=== PATIENT | male | born 1980 | race Caucasian/White ===

== ENCOUNTER 2016-07-02 09:49 | Emergency (ER) | payer OTHER ==
[~2016-07-02] VITALS: Ht 177.8 cm; Wt 94.3 kg
[~2016-07-02 09:49] MED LIST: DIAZ5TAB4 PO; DISU250T15 PO; DISU250T2 PO; DULO30CA2 PO; HCG250DI IM; HYDR2TAB13 PO; HYDR8TAB27 PO; INSU100I11; INSU100I29 SQ-INSULIN; LIPA1TAB3 PO; LORA-446 PO; ONDA4TAB10 PO; OXYC-229 PO; OXYC-302 PO; OXYC5TAB3 PO; PROM25TA10 PO; TAMS-11 PO; TEST200V3 IM
[2016-07-02] MEDS ORDERED: SODIUM CHLORIDE 0.9% 1,000 ML IV ONE (10:21)
[2016-07-02] MEDS ORDERED: SODIUM CHLORIDE FLUSH 10ML SYR IVF ONE (10:30)
[2016-07-02] MEDS ORDERED: KETOROLAC 30 MG/1 ML IVPush ONE (10:30)
[2016-07-02] MEDS ORDERED: SODIUM CHLORIDE 0.9% 1,000ML IVBOLUS ONE (10:30)
[2016-07-02] MEDS ORDERED: ALBUTEROL SULFATE 2.5 MG/3 ML ONE (10:49)
[2016-07-02] MEDS ORDERED: KETOROLAC 30 MG/1 ML ONE (10:54)
[2016-07-02] MEDS ORDERED: ALBUTEROL SULFATE 2.5 MG/3 ML NPPB ONE (11:00)
[2016-07-02 11:02] LABS: BLOOD UREA NITROGEN 21 mg/dL (7-18)
[2016-07-02] MEDS ORDERED: ACETAMINOPHEN 500 MG TABLET ONE (12:08)
[2016-07-02] MEDS ORDERED: ACETAMINOPHEN 500 MG TABLET PO ONE (12:30)
[2016-07-02 13:01] VITALS: BP 128/80
== END 2016-07-02 13:36 | disposition home or self-care (01) ==
LOC: ED 11:14
DX: J20.8 Acute bronchitis due to other specified organisms (principal); Z88.5 Allergy status to narcotic agent; Z88.1 Allergy status to other antibiotic agents; Z88.8 Allergy status to other drugs, medicaments and biological substances
CPT/HCPCS: 36415; 71010; 80048; 82040; 83605; 85025; 87040; 94640; 96361; 96374; 99285; J1885; J7030; J7613

== ENCOUNTER 2016-07-09 16:02 | Inpatient (IN) | payer OTHER, MEDICARE ==
[~2016-07-09] VITALS: Ht 177.8 cm; Wt 96.8 kg
[2016-07-09] MEDS ORDERED: INSU300I SC (16:52)
[2016-07-09] MEDS ORDERED: INSU100I15 SC (16:53)
[2016-07-09] MEDS ORDERED: ANAS1TAB3 PO (16:54)
[2016-07-09] MEDS ORDERED: MAALOX/HYOSCYAMINE/LIDOCAINE 45 ML BOTTLE ONE (17:26)
[2016-07-09] MEDS ORDERED: HYDROmorphone 1 MG/ML, 1ML ONE ×3 (17:26→19:37)
[2016-07-09] MEDS ORDERED: ONDANSETRON 2MG/ML, 2ML ONE (17:27)
[2016-07-09] MEDS ORDERED: FAMOTIDINE 20 MG/2 ML ONE (17:27)
[2016-07-09] MEDS ORDERED: MAALOX/HYOSCYAMINE/LIDOCAINE 45 ML BOTTLE PO ONE (17:30)
[2016-07-09] MEDS ORDERED: ONDANSETRON 2MG/ML, 2ML IVPush ONE (17:30)
[2016-07-09] MEDS ORDERED: FAMOTIDINE 20 MG/2 ML IVP ONE (17:30)
[2016-07-09] MEDS ORDERED: SODIUM CHLORIDE 0.9% 1,000ML IVBOLUS ONE (17:30)
[2016-07-09] MEDS: HYDROmorphone 1 MG/ML, 1ML IVPush PRN ×2 (17:34→18:07)
[2016-07-09 17:47] LABS: BLOOD UREA NITROGEN 20 mg/dL (7-18)
[2016-07-09 17:50] LABS: ASPARTATE AMINO TRANSFERASE 31 U/L (15-37)
[2016-07-09] MEDS ORDERED: HYDROmorphone 1 MG/ML, 1ML IV ONE (19:30)
[2016-07-09 21:34] VITALS: BP 156/94
[2016-07-09] MEDS ORDERED: DEXTROSE 50%, 50ML SYRINGE IVPush PRN (23:30)
[2016-07-09] MEDS ORDERED: GLUCAGON 1 MG IM PRN (23:30)
[2016-07-09] MEDS ORDERED: PROMETHAZINE 25 MG/ML, 1ML IM PRN (23:30)
[2016-07-09] MEDS ORDERED: DEXTROSE 4 GM TAB.CHEW PO PRN (23:30)
[2016-07-09] MEDS ORDERED: ONDANSETRON 2MG/ML, 2ML IVP PRN (23:30)
[2016-07-10] MEDS: SODIUM CHLORIDE 0.9% 1,000 ML IV SCH ×3 (00:38→18:26)
[2016-07-10] MEDS: HYDROmorphone 2 MG/ML, 1ML IV PRN ×8 (00:46→21:32)
[2016-07-10] MEDS: FAMOTIDINE 20 MG/2 ML IVPush SCH ×3 (00:46→20:45)
[2016-07-10 01:08] VITALS: BP 149/86
[2016-07-10] MEDS: ENOXAPARIN 40 MG/0.4 ML SQ SCH (05:19)
[2016-07-10 07:54] VITALS: BP 147/91
[2016-07-10] MEDS: INSULIN DETEMIR 100 UNITS/ML, PEN SQ-INSULIN SCH ×2 (07:55→21:32)
[2016-07-10 08:59] LABS: BLOOD UREA NITROGEN 24 mg/dL (7-18)
[2016-07-10] MEDS: SODIUM CHLORIDE FLUSH 10ML SYR IVF SCH ×2 (09:00→20:45)
[2016-07-10 09:04] LABS: ASPARTATE AMINO TRANSFERASE 25 U/L (15-37)
[2016-07-10] MEDS: INSULIN ASPART 100 UNITS/ML, PEN SQ-INSULIN SCH ×4 (09:25→20:45)
[2016-07-10 12:30] VITALS: BP 138/83
[2016-07-10] MEDS: LIPASE/PROTEASE/AMYLASE TAB PO SCH (17:04)
[2016-07-10 20:06] VITALS: BP 154/81
[2016-07-11] MEDS: HYDROmorphone 2 MG/ML, 1ML IV PRN ×4 (00:36→09:31)
[2016-07-11 01:04] VITALS: BP 139/84
[2016-07-11] MEDS: SODIUM CHLORIDE 0.9% 1,000 ML IV SCH (03:31)
[2016-07-11] MEDS: ENOXAPARIN 40 MG/0.4 ML SQ SCH (04:12)
[2016-07-11 05:39] LABS: BLOOD UREA NITROGEN 14 mg/dL (7-18)
[2016-07-11] MEDS: INSULIN ASPART 100 UNITS/ML, PEN SQ-INSULIN SCH ×4 (07:00→21:47)
[2016-07-11] MEDS: LIPASE/PROTEASE/AMYLASE TAB PO SCH ×3 (08:03→16:41)
[2016-07-11 08:33] VITALS: BP 121/82
[2016-07-11] MEDS: FAMOTIDINE 20 MG/2 ML IVPush SCH ×2 (08:39→21:46)
[2016-07-11] MEDS: INSULIN DETEMIR 100 UNITS/ML, PEN SQ-INSULIN SCH ×2 (09:24→21:48)
[2016-07-11] MEDS ORDERED: OXYcodone IR 5MG TABLET PO PRN ×2 (11:00→16:30)
[2016-07-11] MEDS: SODIUM CHLORIDE FLUSH 10ML SYR IVF SCH ×2 (11:55→21:48)
[2016-07-11] MEDS ORDERED: HYDROmorphone 2 MG/ML, 1ML IVPush PRN ×2 (12:30→15:00)
[2016-07-11 13:58] VITALS: BP 153/83
[2016-07-11] MEDS ORDERED: HYDROmorphone 2MG TABLET PO PRN ×2 (17:00→23:00)
[2016-07-11] MEDS: HYDROmorphone 2MG TABLET PO PRN (18:51)
[2016-07-11 19:15] VITALS: BP 167/92
[2016-07-12] MEDS: HYDROmorphone 2MG TABLET PO PRN ×3 (00:45→13:05)
[2016-07-12 01:08] VITALS: BP 146/92
[2016-07-12] MEDS: ENOXAPARIN 40 MG/0.4 ML SQ SCH (06:00)
[2016-07-12 07:40] VITALS: BP 146/90
[2016-07-12] MEDS: LIPASE/PROTEASE/AMYLASE TAB PO SCH ×2 (08:21→11:50)
[2016-07-12] MEDS: FAMOTIDINE 20 MG/2 ML IVPush SCH (08:21)
[2016-07-12] MEDS: SODIUM CHLORIDE FLUSH 10ML SYR IVF SCH (08:21)
[2016-07-12] MEDS: INSULIN DETEMIR 100 UNITS/ML, PEN SQ-INSULIN SCH (08:21)
[2016-07-12] MEDS: INSULIN ASPART 100 UNITS/ML, PEN SQ-INSULIN SCH ×2 (08:21→11:52)
[2016-07-12 13:12] VITALS: BP 151/95
[2016-07-12] MEDS ORDERED: HYDR2TAB40 PO (13:12)
== END 2016-07-12 15:00 | disposition home or self-care (01) | DRG 392 ==
LOC: ED 16:37 → EDIP 20:40 → 3NE 21:30 → DCLOUNGE 07-12 14:21
PROVIDERS: ADMIT Internal Medicine; ATTEND Internal Medicine
DX: R10.13 Epigastric pain (principal); K86.1 Other chronic pancreatitis; I10 Essential (primary) hypertension; E86.0 Dehydration; D75.1 Secondary polycythemia; E11.65 Type 2 diabetes mellitus with hyperglycemia; K70.9 Alcoholic liver disease, unspecified; G89.29 Other chronic pain; F41.9 Anxiety disorder, unspecified; F10.21 Alcohol dependence, in remission; Z90.49 Acquired absence of other specified parts of digestive tract; Z87.891 Personal history of nicotine dependence; Z90.411 Acquired partial absence of pancreas; Z79.899 Other long term (current) drug therapy; Z88.8 Allergy status to other drugs, medicaments and biological substances
CPT/HCPCS: 36415; 74022; 76700; 80048; 80053; 82150; 82962; 83690; 83735; 84100; 85025; 85379; 86677; 96374; 96375; 96376; J1170; J1815; J2405; J2550; J7030; S0028

== ENCOUNTER 2016-07-24 08:43 | Emergency (ER) | payer MEDICARE, OTHER ==
[~2016-07-24] VITALS: Ht 177.8 cm; Wt 92.1 kg
[~2016-07-24 08:43] MED LIST changes: +ANAS1TAB3 PO; +HYDR2TAB40 PO; +INSU100I15 SC; +INSU300I SC
[2016-07-24] MEDS ORDERED: SODIUM CHLORIDE 0.9% 1,000ML IVBOLUS ONE (09:30)
[2016-07-24] MEDS ORDERED: HYDROmorphone 1 MG/ML, 1ML IVPush PRN (09:30)
[2016-07-24] MEDS ORDERED: ONDANSETRON 2MG/ML, 2ML IVPush ONE (09:30)
[2016-07-24] MEDS ORDERED: ONDANSETRON 2MG/ML, 2ML ONE (09:32)
[2016-07-24] MEDS ORDERED: HYDROmorphone 1 MG/ML, 1ML ONE (09:32)
[2016-07-24 09:44] LABS: ASPARTATE AMINO TRANSFERASE 29 U/L (15-37); BLOOD UREA NITROGEN 20 mg/dL (7-18)
[2016-07-24 10:45] VITALS: BP 127/74
== END 2016-07-24 11:01 | disposition home or self-care (01) ==
LOC: ED 10:12
DX: R10.13 Epigastric pain (principal); E11.9 Type 2 diabetes mellitus without complications; Z88.5 Allergy status to narcotic agent; Z88.8 Allergy status to other drugs, medicaments and biological substances
CPT/HCPCS: 36415; 80053; 81003; 83690; 85025; 96361; 96374; 96375; 99284; J1170; J2405; J7030

== ENCOUNTER 2016-07-27 16:09 | Emergency (ER) | payer OTHER ==
[~2016-07-27] VITALS: Ht 177.8 cm; Wt 92.9 kg
[2016-07-27 16:11] VITALS: BP 137/83
[2016-07-27 17:31] LABS: ASPARTATE AMINO TRANSFERASE 38 U/L (15-37); BLOOD UREA NITROGEN 24 mg/dL (7-18)
[2016-07-27] MEDS ORDERED: ONDANSETRON ODT 4 MG ONE (18:00)
[2016-07-27] MEDS ORDERED: ONDANSETRON ODT 4 MG PO ONE (18:30)
== END 2016-07-27 18:11 | disposition home or self-care (01) ==
LOC: ED 18:00
DX: R10.13 Epigastric pain (principal); G89.29 Other chronic pain; F10.20 Alcohol dependence, uncomplicated; E11.9 Type 2 diabetes mellitus without complications; Z90.49 Acquired absence of other specified parts of digestive tract; Z88.1 Allergy status to other antibiotic agents; Z88.6 Allergy status to analgesic agent; Z88.8 Allergy status to other drugs, medicaments and biological substances
CPT/HCPCS: 36415; 80053; 83690; 85025; 99284; Q0162

== ENCOUNTER 2016-08-04 07:13 | Inpatient (IN) | payer MEDICARE, OTHER ==
[~2016-08-04] VITALS: Ht 177.8 cm; Wt 92.7 kg
[2016-08-04] MEDS ORDERED: SODIUM CHLORIDE 0.9% 1,000 ML IV ONE ×2 (08:03→10:52)
[2016-08-04] MEDS ORDERED: ONDANSETRON 2MG/ML, 2ML ONE (08:18)
[2016-08-04] MEDS ORDERED: FAMOTIDINE 20 MG/2 ML ONE (08:18)
[2016-08-04] MEDS ORDERED: HYDROmorphone 1 MG/ML, 1ML ONE ×2 (08:18→10:11)
[2016-08-04] MEDS: HYDROmorphone 1 MG/ML, 1ML IVPush PRN ×2 (08:25→10:13)
[2016-08-04] MEDS ORDERED: FAMOTIDINE 20 MG/2 ML IVP ONE (08:30)
[2016-08-04] MEDS ORDERED: SODIUM CHLORIDE 0.9% 1,000ML IVBOLUS ONE (08:30)
[2016-08-04] MEDS ORDERED: ONDANSETRON 2MG/ML, 2ML IVPush ONE (08:30)
[2016-08-04] MEDS ORDERED: SODIUM CHLORIDE FLUSH 10ML SYR IVF ONE (08:30)
[2016-08-04 08:41] LABS: ASPARTATE AMINO TRANSFERASE 18 U/L (15-37); BLOOD UREA NITROGEN 25 mg/dL (7-18)
[2016-08-04] MEDS ORDERED: OMNIPAQUE 350 MG/ML, 150 ML BOTTLE ONE (09:19)
[2016-08-04] MEDS ORDERED: SODIUM CHLORIDE FLUSH 10ML SYR IVF PRN (11:00)
[2016-08-04] MEDS ORDERED: TEMAZEPAM 15 MG CAPSULE PO PRN (12:30)
[2016-08-04] MEDS ORDERED: ENALAPRILAT 1.25 MG/ML, 2ML IVPush PRN (12:30)
[2016-08-04] MEDS: SODIUM CHLORIDE 0.9% 1,000 ML IV SCH ×2 (12:34→23:03)
[2016-08-04] MEDS: HYDROmorphone 2 MG/ML, 1ML IVPush PRN ×4 (12:42→23:03)
[2016-08-04] MEDS: ONDANSETRON 2MG/ML, 2ML IVPush PRN ×2 (12:42→23:04)
[2016-08-04 12:50] VITALS: BP 149/89
[2016-08-04] MEDS: LIPASE/PROTEASE/AMYLASE TAB PO SCH ×2 (13:53→16:49)
[2016-08-04 14:11] LABS: DAU SCREEN DISCLAIMER
[2016-08-04] MEDS: INSULIN DETEMIR 100 UNITS/ML, PEN SQ-INSULIN SCH (22:49)
[2016-08-04] MEDS: INSULIN REGULAR 100 UNITS/ML, 3ML VIAL SQ-INSULIN SCH (22:52)
[2016-08-04] MEDS: GABAPENTIN 300 MG CAPSULE PO SCH (22:52)
[2016-08-04] MEDS: PANTOPROZOLE 40MG TABLET PO SCH (22:52)
[2016-08-05] MEDS: HYDROmorphone 2 MG/ML, 1ML IVPush PRN ×4 (03:19→14:03)
[2016-08-05] MEDS: OXYcodone IR 5MG TABLET PO PRN ×2 (05:25→21:11)
[2016-08-05 05:55] LABS: ASPARTATE AMINO TRANSFERASE 21 U/L (15-37); BLOOD UREA NITROGEN 17 mg/dL (7-18)
[2016-08-05] MEDS: LIPASE/PROTEASE/AMYLASE TAB PO SCH ×3 (07:00→16:02)
[2016-08-05] MEDS: ONDANSETRON 2MG/ML, 2ML IVPush PRN ×2 (07:41→21:48)
[2016-08-05] MEDS: INSULIN REGULAR 100 UNITS/ML, 3ML VIAL SQ-INSULIN SCH ×4 (07:59→21:10)
[2016-08-05] MEDS: INSULIN DETEMIR 100 UNITS/ML, PEN SQ-INSULIN SCH ×2 (09:00→21:10)
[2016-08-05] MEDS: PANTOPROZOLE 40MG TABLET PO SCH ×2 (09:11→21:10)
[2016-08-05] MEDS: SODIUM CHLORIDE 0.9% 1,000 ML IV SCH (09:14)
[2016-08-05] MEDS ORDERED: PROPOFOL 10 MG/ML, 20ML ONE (12:19)
[2016-08-05] MEDS ORDERED: MEPERIDINE/PF 25MG/0.5ML IVPush PRN (13:00)
[2016-08-05] MEDS ORDERED: HYDROcodone/APAP 7.5-325MG/15ML UDC PO PRN (13:00)
[2016-08-05] MEDS ORDERED: FENTANYL PF 100 MCG/2ML IV PRN (13:00)
[2016-08-05] MEDS ORDERED: ACETAMINOPHEN 325 MG TABLET PO PRN (13:00)
[2016-08-05] MEDS ORDERED: hydrALAzine 20 MG/ML, 1ML IV PRN (13:00)
[2016-08-05] MEDS ORDERED: EPHEDRINE 50 MG/ML, 1ML IVPush PRN (13:00)
[2016-08-05] MEDS ORDERED: HYDROmorphone 1 MG/ML, 1ML IV PRN (13:00)
[2016-08-05] MEDS ORDERED: OXYcodone 5 MG/5 ML ORAL.SOL UDC PO PRN (13:00)
[2016-08-05] MEDS ORDERED: ONDANSETRON 2MG/ML, 2ML IVPush PRN (13:00)
[2016-08-05] MEDS ORDERED: LABETALOL 5MG/ML, 20ML IV PRN (13:00)
[2016-08-05] MEDS ORDERED: PROMETHAZINE 25 MG/ML, 1ML IV PRN (13:00)
[2016-08-05] MEDS ORDERED: MIDAZOLAM 1 MG/ML, 2ML IV PRN (13:00)
[2016-08-05] MEDS: HYDROmorphone 4MG TABLET PO PRN ×2 (17:11→23:06)
[2016-08-05 19:56] VITALS: BP 159/92
[2016-08-05] MEDS: GABAPENTIN 300 MG CAPSULE PO SCH (21:10)
[2016-08-06 02:00] VITALS: BP 147/89
[2016-08-06] MEDS: HYDROmorphone 4MG TABLET PO PRN ×4 (04:58→21:26)
[2016-08-06] MEDS: INSULIN REGULAR 100 UNITS/ML, 3ML VIAL SQ-INSULIN SCH ×4 (07:00→20:25)
[2016-08-06] MEDS: PANTOPROZOLE 40MG TABLET PO SCH ×2 (07:19→20:24)
[2016-08-06] MEDS: LIPASE/PROTEASE/AMYLASE TAB PO SCH ×3 (07:19→16:12)
[2016-08-06] MEDS: ONDANSETRON 2MG/ML, 2ML IVPush PRN ×2 (07:30→19:39)
[2016-08-06 07:50] VITALS: BP 145/87
[2016-08-06] MEDS: INSULIN DETEMIR 100 UNITS/ML, PEN SQ-INSULIN SCH ×2 (08:16→20:30)
[2016-08-06 15:18] VITALS: BP 157/95
[2016-08-06 15:21] VITALS: BP 148/83
[2016-08-06 19:12] VITALS: BP 167/84
[2016-08-06] MEDS: GABAPENTIN 300 MG CAPSULE PO SCH (20:24)
[2016-08-07 01:10] VITALS: BP 161/94
[2016-08-07] MEDS: HYDROmorphone 4MG TABLET PO PRN ×5 (02:00→22:35)
[2016-08-07] MEDS: LIPASE/PROTEASE/AMYLASE TAB PO SCH ×4 (07:00→17:12)
[2016-08-07] MEDS: ONDANSETRON 2MG/ML, 2ML IVPush PRN ×2 (07:12→14:40)
[2016-08-07 07:15] VITALS: BP 146/86
[2016-08-07] MEDS ORDERED: HYDROmorphone 1 MG/ML, 1ML IV ONE (08:39)
[2016-08-07] MEDS: INSULIN DETEMIR 100 UNITS/ML, PEN SQ-INSULIN SCH ×2 (08:46→22:35)
[2016-08-07] MEDS: INSULIN REGULAR 100 UNITS/ML, 3ML VIAL SQ-INSULIN SCH ×4 (08:46→22:35)
[2016-08-07] MEDS: PANTOPROZOLE 40MG TABLET PO SCH ×2 (09:05→21:00)
[2016-08-07 14:09] VITALS: BP 147/88
[2016-08-07 19:50] VITALS: BP 149/89
[2016-08-07] MEDS: GABAPENTIN 300 MG CAPSULE PO SCH (21:00)
[2016-08-08 02:00] VITALS: BP 138/84
[2016-08-08] MEDS: HYDROmorphone 4MG TABLET PO PRN ×4 (03:30→21:29)
[2016-08-08] MEDS: LIPASE/PROTEASE/AMYLASE TAB PO SCH ×3 (07:00→16:00)
[2016-08-08 07:04] VITALS: BP 134/81
[2016-08-08] MEDS: HYDROmorphone 2 MG/ML, 1ML IVPush PRN (08:46)
[2016-08-08] MEDS: INSULIN REGULAR 100 UNITS/ML, 3ML VIAL SQ-INSULIN SCH ×4 (09:00→22:24)
[2016-08-08] MEDS: PANTOPROZOLE 40MG TABLET PO SCH ×2 (09:00→22:24)
[2016-08-08] MEDS: INSULIN DETEMIR 100 UNITS/ML, PEN SQ-INSULIN SCH ×2 (09:00→22:23)
[2016-08-08 14:30] VITALS: BP 129/86
[2016-08-08] MEDS: ONDANSETRON 2MG/ML, 2ML IVPush PRN (16:53)
[2016-08-08 19:27] VITALS: BP 137/77
[2016-08-08] MEDS: GABAPENTIN 300 MG CAPSULE PO SCH (22:24)
[2016-08-09 02:17] VITALS: BP 130/74
[2016-08-09] MEDS: HYDROmorphone 4MG TABLET PO PRN ×5 (02:29→23:26)
[2016-08-09 06:32] LABS: BLOOD UREA NITROGEN 20 mg/dL (7-18)
[2016-08-09] MEDS: INSULIN REGULAR 100 UNITS/ML, 3ML VIAL SQ-INSULIN SCH ×4 (07:00→20:21)
[2016-08-09 07:26] VITALS: BP 130/87
[2016-08-09] MEDS: LIPASE/PROTEASE/AMYLASE TAB PO SCH ×3 (07:45→16:47)
[2016-08-09] MEDS: PANTOPROZOLE 40MG TABLET PO SCH ×2 (07:46→20:22)
[2016-08-09] MEDS: INSULIN DETEMIR 100 UNITS/ML, PEN SQ-INSULIN SCH ×2 (07:48→20:22)
[2016-08-09 14:44] VITALS: BP 118/77
[2016-08-09 19:38] VITALS: BP 127/76
[2016-08-09] MEDS: GABAPENTIN 300 MG CAPSULE PO SCH (20:22)
[2016-08-10 01:34] VITALS: BP 152/77
[2016-08-10] MEDS: HYDROmorphone 4MG TABLET PO PRN ×2 (04:25→09:45)
[2016-08-10 07:16] VITALS: BP 140/97
[2016-08-10] MEDS: PANTOPROZOLE 40MG TABLET PO SCH (07:36)
[2016-08-10] MEDS: LIPASE/PROTEASE/AMYLASE TAB PO SCH (07:36)
[2016-08-10] MEDS: INSULIN DETEMIR 100 UNITS/ML, PEN SQ-INSULIN SCH (07:38)
[2016-08-10] MEDS: INSULIN REGULAR 100 UNITS/ML, 3ML VIAL SQ-INSULIN SCH (07:38)
[2016-08-10] MEDS ORDERED: INSU100V13 SQ (09:23)
[2016-08-10] MEDS ORDERED: PANT40TA5 PO (09:23)
[2016-08-10] MEDS ORDERED: GABA300C10 PO (09:23)
[2016-08-10] MEDS ORDERED: LIPA1TAB3 PO (09:23)
[2016-08-10] MEDS ORDERED: POLY119P4 PO (11:18)
== END 2016-08-10 11:30 | disposition home or self-care (01) | DRG 391 ==
LOC: ED 07:34 → EDIP 10:52 → 3NE 12:20 → DCLOUNGE 08-10 11:07
PROVIDERS: ADMIT Internal Medicine; ATTEND Internal Medicine
PROC: 0DB68ZX Excision of Stomach, Via Natural or Artificial Opening Endoscopic, Diagnostic (ICD-10-PCS; 2016-08-05)
PROC: 0DB58ZX Excision of Esophagus, Via Natural or Artificial Opening Endoscopic, Diagnostic (ICD-10-PCS; 2016-08-05)
PROC: 0DB98ZX Excision of Duodenum, Via Natural or Artificial Opening Endoscopic, Diagnostic (ICD-10-PCS; principal; 2016-08-05 13:15)
DX: K29.70 Gastritis, unspecified, without bleeding (principal); K85.90 Acute pancreatitis without necrosis or infection, unspecified; K85.30 Drug induced acute pancreatitis without necrosis or infection; F11.20 Opioid dependence, uncomplicated; D69.6 Thrombocytopenia, unspecified; E10.65 Type 1 diabetes mellitus with hyperglycemia; E86.0 Dehydration; F12.90 Cannabis use, unspecified, uncomplicated; R16.1 Splenomegaly, not elsewhere classified; G89.29 Other chronic pain; K70.9 Alcoholic liver disease, unspecified; Z72.0 Tobacco use; Z79.4 Long term (current) use of insulin; Z90.411 Acquired partial absence of pancreas; Z90.49 Acquired absence of other specified parts of digestive tract; Z93.0 Tracheostomy status; Z90.89 Acquired absence of other organs; Z88.6 Allergy status to analgesic agent; Z88.5 Allergy status to narcotic agent; Z88.8 Allergy status to other drugs, medicaments and biological substances; T38.0X5A Adverse effect of glucocorticoids and synthetic analogues, initial encounter; K20.9 Esophagitis, unspecified
CPT/HCPCS: 36415; 74177; 74181; 74250; 80048; 80053; 80307; 81003; 82140; 82656; 82962; 83036; 83605; 83690; 83735; 84100; 84110; 84443; 85025; 88305; 96361; 96374; 96375; 96376; J1170; J1815; J2405; J2704; Q9967; J7030; S0028

== ENCOUNTER 2016-08-15 07:55 | Emergency (ER) | payer MEDICARE, OTHER ==
[~2016-08-15] VITALS: Ht 177.8 cm; Wt 90.3 kg
[~2016-08-15 07:55] MED LIST changes: +GABA300C10 PO; +INSU100V13 SQ; +PANT40TA5 PO; +POLY119P4 PO
[2016-08-15] MEDS ORDERED: FAMOTIDINE 20 MG/2 ML ONE (08:57)
[2016-08-15] MEDS ORDERED: HYDROmorphone 1 MG/ML, 1ML ONE (08:57)
[2016-08-15] MEDS ORDERED: ONDANSETRON 2MG/ML, 2ML ONE (08:57)
[2016-08-15] MEDS ORDERED: SODIUM CHLORIDE 0.9% 1,000ML IVBOLUS ONE (09:00)
[2016-08-15] MEDS ORDERED: ONDANSETRON 2MG/ML, 2ML IVPush ONE (09:00)
[2016-08-15] MEDS ORDERED: SODIUM CHLORIDE FLUSH 10ML SYR IVF ONE (09:00)
[2016-08-15] MEDS ORDERED: HYDROmorphone 1 MG/ML, 1ML IVPush PRN (09:00)
[2016-08-15] MEDS ORDERED: FAMOTIDINE 20 MG/2 ML IVP ONE (09:00)
[2016-08-15 09:36] LABS: ASPARTATE AMINO TRANSFERASE 10 U/L (15-37); BLOOD UREA NITROGEN 21 mg/dL (7-18)
[2016-08-15] MEDS ORDERED: METOCLOPRAMIDE 5 MG/ML, 2ML ONE (09:57)
[2016-08-15] MEDS ORDERED: LORazepam 2 MG/ML, 1ML ONE (09:58)
[2016-08-15] MEDS ORDERED: LORazepam 2 MG/ML, 1ML IVPush ONE (10:00)
[2016-08-15] MEDS ORDERED: METOCLOPRAMIDE 5 MG/ML, 2ML IVPush ONE (10:00)
[2016-08-15 10:53] VITALS: BP 126/83
== END 2016-08-15 10:55 | disposition home or self-care (01) ==
LOC: ED 09:19
DX: R10.13 Epigastric pain (principal); R11.2 Nausea with vomiting, unspecified; G89.29 Other chronic pain; E11.65 Type 2 diabetes mellitus with hyperglycemia; F17.210 Nicotine dependence, cigarettes, uncomplicated
CPT/HCPCS: 36415; 80053; 81001; 83605; 83690; 85025; 96361; 96374; 96375; 99284; J1170; J2060; J2405; J2765; J7030; S0028

== ENCOUNTER 2016-08-21 13:29 | Emergency (ER) | payer OTHER ==
[~2016-08-21] VITALS: Ht 177.8 cm; Wt 90.3 kg
[2016-08-21] MEDS ORDERED: MAALOX/HYOSCYAMINE/LIDOCAINE 45 ML BOTTLE PO ONE (14:30)
[2016-08-21] MEDS ORDERED: SODIUM CHLORIDE 0.9%, 500ML IVBOLUS ONE (14:30)
[2016-08-21 15:15] LABS: ASPARTATE AMINO TRANSFERASE 23 U/L (15-37); BLOOD UREA NITROGEN 17 mg/dL (7-18)
[2016-08-21] MEDS ORDERED: MAALOX/HYOSCYAMINE/LIDOCAINE 45 ML BOTTLE ONE (15:19)
[2016-08-21 16:15] VITALS: BP 117/76
== END 2016-08-21 16:47 | disposition home or self-care (01) ==
LOC: ED 16:10
DX: G89.29 Other chronic pain (principal); R10.13 Epigastric pain; E11.9 Type 2 diabetes mellitus without complications
CPT/HCPCS: 36415; 80053; 83605; 83690; 85025; 93005; 99285

== ENCOUNTER 2016-09-08 18:56 | Emergency (ER) | payer OTHER ==
[~2016-09-08] VITALS: Ht 177.8 cm; Wt 88.3 kg
[~2016-09-08 18:56] MED LIST changes: -HYDR2TAB13 PO; +HYDR2TAB29 PO
[2016-09-08] MEDS ORDERED: SODIUM CHLORIDE FLUSH 10ML SYR IVF ONE ×2 (19:30→20:00)
[2016-09-08] MEDS ORDERED: SODIUM CHLORIDE 0.9% 1,000ML IVBOLUS ONE ×2 (19:30→20:00)
[2016-09-08] MEDS ORDERED: ONDANSETRON 2MG/ML, 2ML IVPush ONE ×2 (19:30→20:00)
[2016-09-08 19:58] LABS: ASPARTATE AMINO TRANSFERASE 50 U/L (15-37); BLOOD UREA NITROGEN 20 mg/dL (7-18)
[2016-09-08] MEDS ORDERED: FAMOTIDINE 20 MG/2 ML IVP ONE (20:00)
[2016-09-08] MEDS ORDERED: HYDROmorphone 1 MG/ML, 1ML ONE ×2 (20:10→21:09)
[2016-09-08] MEDS ORDERED: FAMOTIDINE 20 MG/2 ML ONE (20:10)
[2016-09-08] MEDS ORDERED: ONDANSETRON 2MG/ML, 2ML ONE ×2 (20:10→20:44)
[2016-09-08] MEDS: HYDROmorphone 1 MG/ML, 1ML IVPush PRN ×2 (20:20→21:11)
[2016-09-08 21:30] VITALS: BP 129/86
[2016-09-08] MEDS ORDERED: INSULIN SINGLE DOSE, ER SQ-INSULIN ONE (21:30)
[2016-09-08] MEDS ORDERED: INSULIN REGULAR 100 UNITS/ML, 3ML VIAL ONE (21:42)
[2016-09-08] MEDS ORDERED: HYDROmorphone 2MG TABLET PO ONE (22:00)
[2016-09-08] MEDS ORDERED: ACETAMINOPHEN 500 MG TABLET ONE (22:36)
== END 2016-09-08 22:52 | disposition home or self-care (01) ==
LOC: ED 20:11
DX: R10.13 Epigastric pain (principal); R11.2 Nausea with vomiting, unspecified; R19.7 Diarrhea, unspecified; F11.23 Opioid dependence with withdrawal; K70.9 Alcoholic liver disease, unspecified; E11.65 Type 2 diabetes mellitus with hyperglycemia
CPT/HCPCS: 36415; 80053; 80307; 82010; 82800; 83690; 85025; 96372; 96374; 96375; 96376; 99284; J1170; J2405; J7030; S0028

== ENCOUNTER 2016-09-09 20:11 | Emergency (ER) | payer OTHER ==
[~2016-09-09] VITALS: Ht 177.8 cm; Wt 90.0 kg
[2016-09-09 21:42] LABS: ASPARTATE AMINO TRANSFERASE 33 U/L (15-37); BLOOD UREA NITROGEN 12 mg/dL (7-18)
[2016-09-09 21:46] VITALS: BP 122/71
== END 2016-09-09 21:55 | disposition left against medical advice (07) ==
LOC: ED 20:45
DX: F10.229 Alcohol dependence with intoxication, unspecified (principal); E11.65 Type 2 diabetes mellitus with hyperglycemia
CPT/HCPCS: 36415; 80053; 80307; 83690; 85025; 99284

== ENCOUNTER 2016-09-09 23:47 | Emergency (ER) | payer OTHER ==
[2016-09-10] MEDS ORDERED: HALOPERIDOL 5 MG/ML ONE (00:25)
[2016-09-10] MEDS ORDERED: DICYCLOMINE 10 MG/ML, 2ML IM ONE (00:30)
[2016-09-10] MEDS ORDERED: HALOPERIDOL 5 MG/ML IM PRN (00:30)
[2016-09-10 04:35] VITALS: BP 111/84
== END 2016-09-10 04:37 | disposition home or self-care (01) ==
LOC: ED 23:51
DX: R10.84 Generalized abdominal pain (principal); F10.220 Alcohol dependence with intoxication, uncomplicated; E11.65 Type 2 diabetes mellitus with hyperglycemia; Z90.49 Acquired absence of other specified parts of digestive tract
CPT/HCPCS: 70450; 72125; 73560; 96372; 99284; J0500; J1630

== ENCOUNTER 2016-09-18 19:20 | Emergency (ER) | payer OTHER ==
[~2016-09-18] VITALS: Ht 177.8 cm; Wt 87.7 kg
[2016-09-18] MEDS ORDERED: FAMOTIDINE 20 MG/2 ML IVP ONE (20:00)
[2016-09-18] MEDS ORDERED: SODIUM CHLORIDE 0.9% 1,000ML IVBOLUS ONE (20:00)
[2016-09-18] MEDS ORDERED: SODIUM CHLORIDE FLUSH 10ML SYR IVF ONE (20:00)
[2016-09-18] MEDS ORDERED: DIPHENHYDRAMINE 50 MG/ML, 1ML IVPush ONE (20:00)
[2016-09-18] MEDS ORDERED: METOCLOPRAMIDE 5 MG/ML, 2ML IVPush ONE (20:00)
[2016-09-18] MEDS ORDERED: MAALOX/HYOSCYAMINE/LIDOCAINE 45 ML BOTTLE PO ONE (20:00)
[2016-09-18] MEDS ORDERED: METOCLOPRAMIDE 5 MG/ML, 2ML ONE (20:17)
[2016-09-18] MEDS ORDERED: MAALOX/HYOSCYAMINE/LIDOCAINE 45 ML BOTTLE ONE (20:18)
[2016-09-18] MEDS ORDERED: DIPHENHYDRAMINE 50 MG/ML, 1ML ONE (20:18)
[2016-09-18] MEDS ORDERED: FAMOTIDINE 20 MG/2 ML ONE (20:18)
[2016-09-18 20:32] LABS: ASPARTATE AMINO TRANSFERASE 16 U/L (15-37); BLOOD UREA NITROGEN 23 mg/dL (7-18)
[2016-09-18 21:21] VITALS: BP 136/80
== END 2016-09-18 21:35 | disposition home or self-care (01) ==
LOC: ED 21:29
DX: R10.13 Epigastric pain (principal); E11.65 Type 2 diabetes mellitus with hyperglycemia; Z90.49 Acquired absence of other specified parts of digestive tract
CPT/HCPCS: 36415; 80053; 83690; 85025; 96361; 96374; 96375; 99284; J1200; J2765; J7030; S0028